=== PATIENT | female | born 1975 | race Caucasian/White ===

== ENCOUNTER 2022-10-07 06:50 | Day surgery (SDC) | payer OTHER ==
[2022-09-30 16:03] VITALS: BP 128/79
[~2022-10-07] VITALS: Ht 167.6 cm; Wt 114.5 kg
[~2022-10-07 06:50] MED LIST: ASPIRIN81 MG PO; HYDROCHLOROTHIA25 MG PO; LIPITOR80 MG GT; LOSARTAN POTAS100 MG PO; NORVASC5 MG PO; PROZAC40 MG PO; VITAMIN D325 MCG PO
[2022-10-07 07:19] VITALS: BP 117/76
--- NOTE | 2022-10-07 10:17 | NUR ---
10/07/22 1017 Sheets,Amalia 1002 PT ARRIVED TO PACU ON 10L VIA MASK WITH ORAL AIRWAY IN PLACE. RESP EVEN AND UNLABORED. MUSCLE RIGIDITY AND SHIVERING NOTED. WARM BLACKETS AND WARM AIR PLACED. 1008 PT WOKE TO TACTILE STIMULI AND ORAL AIRWAY REMOVED. SCLERAL EDEMA NOTED AND BUILDING SUPERINTENDENT AWARE. HOB INCREASED SLIGHTLY. PT REORIENTED TO PACU AND EASILY FALLS BACK TO SLEEP WIHT SNORING NOTED. 1010 HOB INCREASED INTO HIGH FOWLERS. PT DENIES NAUSEA AND PAIN. 1012 O2 REMOVED, LARGE AMOUNT OF SNORING NOTED.
[2022-10-07 11:01] VITALS: BP 143/69
--- NOTE | 2022-10-07 11:06 | NUR ---
LE 1100: PT IS BACK TO DS FROM PACU. SHE IS BACK TO HER BASELINE. SHE IS TOLERATING SIPS OF WATER. SHE REPORTS FEELING VERY HOT. SHE DENIES PAIN AT THIS TIME. CALL LIGHT WITHIN REACH. NO ADDITIONAL NEEDS OR CONCERNS AT THIS TIME.
--- NOTE | 2022-10-07 11:13 | NUR ---
PT'S HUDSON IS REMOVED. BALLOON IS DEFLATED OF 9CC'S OF NS. CATHETER IS REMOVED WITHOUT ISSUES. THERE IS APPROX 200MLS OF DARK YELLOW URINE. PT IS GIVEN SALTINE CRACKERS.
[2022-10-07 12:08] VITALS: BP 150/71
--- NOTE | 2022-10-07 12:29 | NUR ---
LE 1215: PT IS UP TO THE BATHROOM WITHOUT STAND BY ASSIST. SHE IS ABLE TO VOID 100MLS OF BLOOD TINGED URINE. SHE HAS MET ALL DC CRITERIA. SHE INDICATES THAT SHE WOULD LIKE TO GO HOME. SHE IS GIVEN VERBAL AND WRITTEN DC INSTRUCTIONS. SHE VERBALIZES UNDERSTANDING. NO QUESTIONS AT THIS TIME. SHE IS EDUCATED ON HOW TO BEST DRESS HERSELF AND TO OPEN HER CURTAIN WHEN READY TO GO. LE 1225: PT'S WATER IS REFILLED FOR HER. SHE IS TAKEN TO PERSONAL VEHICLE VIA , WHERE SHE TRANSFERS HERSELF WITHOUT ISSUES.
--- NOTE | 2022-10-08 15:30 | NUR ---
PT REPORTS SHE IS JUST HAVING SOME "DISCOMFORT", REPORTS THE PAIN MEDICATION IS HELPING. PT STATES THE PAIN IS TOLERABLE. PT DENIES HAVING ANY QUESTIONS OR CONCERNS. PT THANKFUL FOR HER CARE.
--- NOTE | 2022-10-11 13:31 | PATH ---
[facility] [address], [place] [address] Signed SPECIMEN(S): A UTERUS CERVIX, AND LEFT FALLOPIAN TUBE SPECIMEN SOURCE: A. UTERUS CERVIX, AND LEFT FALLOPIAN TUBE CLINICAL HISTORY: Submucous and intramural leiomyoma of uterus. Abnormal uterine bleeding. Dysmenorrhea. FINAL PATHOLOGIC DIAGNOSIS: Uterus, cervix, and left fallopian tube: - Secretory endometrium, negative for atypical features or evidence of malignancy. - Benign myometrial leiomyoma. - Benign endocervix and ectocervix. - Benign segment of oviduct (left). JVR:[facility]:C2NR MICROSCOPIC EXAMINATION: Histologic sections of all submitted blocks are examined by light microscopy. These findings, together with the gross examination, support the pathologic diagnosis. GROSS DESCRIPTION: The specimen, labeled and designated "[place], A" and designated on the requisition "left fallopian tube, cervix, uterus," is received in formalin and consists of a uterus (111 g, 6.7 cm superior-inferior, 5.6 cm cornu to cornu, 5.0 cm anterior to posterior), attached cervix (4.0 cm in length by 3.0 cm in diameter) with warner smooth cervical mucosa and slit-shaped os (0.5 x 0.2 cm). Also received is a detached previously ligated fimbriated fallopian tube segment (3.8 cm in length and ranging in diameter from 0.8 to 1.0 cm). The fallopian tube is sectioned to reveal a warner-pink to red-brown soft cut surface. The fimbriae are submitted entirely. The cervix is sectioned to reveal pink-warner herringbone endocervix (endocervical canal: 3.0 cm in length by 1.0 cm in diameter) with multiple mucoid material filled cysts within the wall of the cervix that range in size from 0.2 to 0.7 cm in greatest dimension. The uterine serosa is warner-pink and smooth. Sectioning of the uterus reveals an endometrial cavity (5.5 cm superior to inferior by 2.5 cm cornu to PATIENT NAME: MATY ASHFORD PATHOLOGY DATE OF : 79 REPORT #: [id number] PHYSICIAN: UDAY HURTADO PCP: MUKUND GOLDSMITH MD REPORT IS CONFIDENTIAL AND NOT TO BE RELEASED WITHOUT AUTHORIZATION [facility] [address], [place] [address] Signed cornu) with warner-pink endometrial lining that measures up to 0.8 cm in thickness. The myometrium is pink-warner and trabeculated and measures up to 1.7 cm in thickness with one white-warner intramural nodule (0.3 cm in greatest dimension). No other masses or nodules are grossly identified. Pasteurizer sections are submitted. Cassette Summary: (A1) Fallopian tube (A2) Cervix (A3) Endomyometrium (A4) Myometrium with nodule AC (under the direct supervision of a pathologist) The Gross Description was prepared using a voice recognition system. The report was reviewed for accuracy; however, sound-alike word errors, addition and/or deletions may occur. If there is any question about this report, please contact Client Services. PERFORMING LABORATORY: The technical component was performed by [facility], [address] [place] [id number] (CLIA# [id number]). Professional interpretation was performed by [facility], [address] [place] [address] (CLIA#: [id number]). Diagnostician: Bryce Quinteros MD Pathologist Electronically Signed 10/11/2022 Copies: ~ PATIENT NAME: MATY ASHFORD PATHOLOGY DATE OF : 79 REPORT #: [id number] PHYSICIAN: UDAY PATHOLOGY PCP: MUKUND GOLDSMITH MD REPORT IS CONFIDENTIAL AND NOT TO BE RELEASED WITHOUT AUTHORIZATION
--- NOTE | 2022-10-13 08:47 | OR ---
[facility] [address] [place] [id number] Signed DATE OF OPERATION: 10/07/2022 SURGEON: Danae Huang DO PREOPERATIVE DIAGNOSES: 1. Abnormal uterine bleeding. 2. Fibroid uterus. 3. Dysmenorrhea. 4. History of stroke. 5. Obesity. POSTOPERATIVE DIAGNOSES: 1. Abnormal uterine bleeding. 2. Fibroid uterus. 3. Dysmenorrhea. 4. History of stroke. 5. Obesity. 6. Abdominal adhesions. PROCEDURES PERFORMED: 1. Total laparoscopic hysterectomy. 2. Left salpingectomy to complete bilateral salpingectomy. 3. Lysis of adhesions (minimal). 4. Cystoscopy. SITE TECHNICIAN: Stan Parks MD ANESTHESIA: General. ESTIMATED BLOOD LOSS: 50 mL. SPECIMENS: 1. Uterus and cervix. 2. Left fallopian tube. DRAINS: Restrepo to gravity. Electronically Signed By: DANAE HUANG DO (JD) 10/13/22 0847 PATIENT NAME: MATY SONI OPERATIVE REPORT DATE OF : 79 REPORT #: [id number] PHYSICIAN: DANAE HUANG DO (JD) PCP: MUKUND GOLDSMITH MD REPORT IS CONFIDENTIAL AND NOT TO BE RELEASED WITHOUT AUTHORIZATION [facility] [address] [place] [id number] Signed FINDINGS: Normal external genitalia with normal clitoris, urethral meatus, bilateral [place]'s, and Bartholin glands. Normal vagina and cervix. On laparoscopy, absent right ovary and tube consistent with surgical history. Adhesions of the omentum to the anterior abdominal wall were released without difficulty. Fibroid uterus. Excellent hemostasis and apical support at the end of the procedure. On cystoscopy, normal bladder with bilateral ureteral jets. COMPLICATIONS: None. INDICATIONS: Ms. Soni is a pleasant 46-year-old female with a history of abnormal uterine bleeding, dysmenorrhea, dyspareunia, and history of right salpingo-oophorectomy in the past. The patient's abnormal bleeding has been progressive and treatment options were very limited given her recent history of stroke a few years ago. Hysteroscopy was performed and the fibroids were unable to be completely resected. The patient continued to have symptoms and decision was made to proceed with definitive treatment with total laparoscopic hysterectomy, completion of bilateral salpingectomy, cystoscopy. Risks, benefits, and alternatives were discussed in detail with the patient. The patient received preoperative clearance from her medical doctor. TECHNIQUE: The patient was taken to the operating room where a time-out was performed to confirm correct patient and correct procedure. General anesthesia was adequately established. The patient was prepped and draped in the dorsal lithotomy position with feet in Yellofin stirrups. ICPs were on and running. The patient received Ancef 2 g preoperatively as well as heparin 5000 units. A Restrepo catheter was inserted. A weighted speculum was placed in the vagina and the anterior lip of the cervix was grasped with an Allis clamp and the cervix was gently dilated using Hegar dilators. VCare uterine manipulator was placed without difficulty. The surgeon's gloves were changed and attention was turned to the abdomen. Just below the umbilicus prior surgical scar was noted and this was infiltrated with 0.25% Marcaine with epinephrine and incised. The fascia was then grasped, elevated, and entered sharply with Metzenbaum scissors. Stay sutures were placed in the superior and inferior edges of the fascial incision and the peritoneum was entered bluntly. A Yashira operative port was then placed without difficulty and the pneumoperitoneum was established. Survey of the abdomen and pelvis was performed, demonstrated absent right tube and ovary consistent with surgical history as well as some small adhesions of the omentum to the anterior abdominal wall. A 5 mm assist port was placed in the left lower quadrant under direct visualization after infiltration with 0.25% Marcaine with epinephrine. An 8 mm Electronically Signed By: DANAE BLANTON) DO TOBIAS 10/13/22 0847 PATIENT NAME: MATY SONI OPERATIVE REPORT DATE OF : 79 REPORT #: [id number] PHYSICIAN: DANAE HUANG) PCP: MUKUND GOLDSMITH MD REPORT IS CONFIDENTIAL AND NOT TO BE RELEASED WITHOUT AUTHORIZATION [address] [address] Signed expanding port was placed in the left and the right lower quadrant under direct visualization after infiltration of local anesthetic. Attention was turned to the hysterectomy. The left fallopian tube was grasped, elevated and dissected along the mesosalpinx using LigaSure device. The left uteroovarian ligament and the round ligaments were fulgurated and divided and the leaves of the broad ligament were divided from the midportion of the round ligament to the vaginal cup. The superior portion of the broad ligament was divided along the vaginal cup anteriorly and the bladder pushed well below the vaginal cup. The posterior edge of the broad ligament was then divided to the level of the uterosacral ligament across the posterior edge of the vaginal cup. The uterine vessels were identified, fulgurated and divided with excellent hemostasis. The process was repeated on the right with division of the round ligament, division of the leaves of the broad ligament and fulguration division of the uterine vessels. Excellent hemostasis was appreciated. Colpotomy was then performed using Sonicision device without difficulty and the cervix and uterus were delivered through the vagina and sent to pathology for further evaluation. Pneumoperitoneum was reestablished by placing a wet lap stuffed inside of a surgical glove inside the vagina. The pelvis was irrigated and small amount of oozing was noted at the cervix and this was made hemostatic with the LigaSure device. Once hemostasis was appreciated, colpotomy was closed using V-Loc suture with an Endostitch device with careful attention to incorporate the uterosacral ligaments bilaterally as well as the vaginal epithelium with each bite. Excellent closure was appreciated with hemostasis and apical support appreciated. Detailed survey of the abdomen and pelvis was performed that demonstrated no evidence of endometriosis. Previously noted omental adhesion was taken down with LigaSure device without difficulty. The pelvis was irrigated, found to be hemostatic and Tisseel was applied to the surgical edges to assure hemostasis. Pneumoperitoneum was reduced and trocars were removed. The infraumbilical fascia was repaired using 0 Vicryl in a running nonlocked manner. Fascial repair was reinforced by ligating previously noted stay sutures. Skin was repaired using 4-0 Monocryl in a subcuticular stitch. Attention was then turned to cystoscopy. The glove was removed from the vagina and the Restrepo was removed from the bladder. A 70 degree cystoscope was placed in the urethral meatus and advanced under direct visualization of the bladder. Normal bladder, bladder dome and bilateral ureteral jets was appreciated. The bladder was drained. Restrepo catheter was reinserted and the patient was taken to the PACU in good and stable condition. Sponge, needle, and instrument count was correct x2 at the end of the procedure. Dr. Parks was present and participated in all portions of the procedure. Danae Stein Huang, Electronically Signed By: DANAE HUANG (JD), DO 10/13/22 0847 PATIENT NAME: MATY SONI OPERATIVE REPORT DATE OF : 79 REPORT #: [id number] PHYSICIAN: DANAE HUANG DO (JD) PCP: MUKUND GOLDSMITH MD REPORT IS CONFIDENTIAL AND NOT TO BE RELEASED WITHOUT AUTHORIZATION [address] [place] [address] Signed COBY/SHASHI /[id number] Copies: ~ Electronically Signed By: DANAE HUANG (JD), DO 10/13/22 0847 PATIENT NAME: MATY SONI OPERATIVE REPORT DATE OF : 79 REPORT #: [id number] PHYSICIAN: DANAE HUANG (CLARE) PCP: MUKUND GOLDSMITH MD REPORT IS CONFIDENTIAL AND NOT TO BE RELEASED WITHOUT AUTHORIZATION
== END 2022-10-07 12:25 | disposition home or self-care (01) ==
LOC: DS 06:50 → OPS 06:50
PROVIDERS: ATTEND Obstetrics & Gynecology
DX: D25.1 Intramural leiomyoma of uterus (principal); D25.0 Submucous leiomyoma of uterus; K66.0 Peritoneal adhesions (postprocedural) (postinfection); N94.6 Dysmenorrhea, unspecified; I69.951 Hemiplegia and hemiparesis following unspecified cerebrovascular disease affecting right dominant side; I10 Essential (primary) hypertension; G47.33 Obstructive sleep apnea (adult) (pediatric); R73.03 Prediabetes; E66.9 Obesity, unspecified; Z88.0 Allergy status to penicillin; Z88.6 Allergy status to analgesic agent; Z88.8 Allergy status to other drugs, medicaments and biological substances; Z79.82 Long term (current) use of aspirin; Z79.899 Other long term (current) drug therapy
CPT/HCPCS: 00840; J0330; J0690; J1100; J1644; J1885; J2250; J2274; J2405; J2704; J2765; J3010; J7121